=== PATIENT | male | born 1990 | race Caucasian/White ===

== ENCOUNTER 2022-10-07 14:37 | Outpatient (OUT) | payer OTHER, SELFPAY ==
--- NOTE | 2022-10-07 14:44 | XR_ITS ---
The [address] [address] Patient Name: CHRISTY FLORES MRN: [id number] date: 1990 Sex: M Assigned Patient Location: US Current Patient Location: US Accession/Order Number: [id number] Exam Date: 10/07/2022 15:40 Report Date: 10/08/2022 05:23 At the request of: OLU COTTON Procedure: XR tibia fibula RT 2V EXAM: XR tibia fibula RT 2V 10/07/2022 3:40 PM EDT OH001 CLINICAL STATEMENT: Rule out DVT M79.604 COMPARISON: No prior studies are available at the time of dictation. TECHNIQUE: AP and lateral views of the right tibia and fibula are submitted. FINDINGS: The osseous structures are intact and in anatomic alignment. There is no acute fracture and/or dislocation. The joint spaces are preserved. Soft tissues are unremarkable. Bone mineralization is within normal limits for the patient's age. IMPRESSION: Unremarkable tibia and fibula radiograph. Electronically authenticated by: ALEX ADORNO Date: 10/08/2022 05:23
--- NOTE | 2022-10-07 14:45 | US_ITS ---
The [address] [address] Patient Name: CHRISTY FLORES MRN: [id number] date: 1990 Sex: M Assigned Patient Location: US Current Patient Location: US Accession/Order Number: [id number] Exam Date: 10/07/2022 15:10 Report Date: 10/08/2022 07:00 At the request of: OLU COTTON Procedure: US venous doppler LE RT EXAMINATION: US venous doppler LE RT HISTORY: Rule out DVT M79.604 ; lateral knee and calf pain COMPARISON: No relevant comparison available. FINDINGS: REGION: Right lower extremity THROMBI: None. COMPRESSIBILITY: Normal compressibility. FLOW: Normal waveform and antegrade flow between 5 and 20 cm/s. OTHER: Complex lymph node within right groin, 3.7 x 1.0 x 2.2 cm. IMPRESSION: 1. No deep vein thrombus within the right lower extremity. 2. Complex right groin lymph node; possibly reactive. Consider follow-up. Electronically authenticated by: CHELI ELLIS Date: 10/08/2022 07:00
== END 2022-10-07 14:38 ==
PROVIDERS: PCP Family Medicine; Visit Provider Family Medicine
DX: M79.604 Pain in right leg (principal)
CPT/HCPCS: 73590; 93971

== ENCOUNTER 2022-10-11 11:58 | Outpatient (OUT) | payer OTHER, SELFPAY ==
[2022-10-11 12:26] LABS: Basophils Percent Auto 0.5 % (0.2-2.0); Eosinophils Absolute Auto 0.1 10^3/uL (0.0-0.7); Eosinophils Percent Auto 2.3 % (0.9-7.0); Hematocrit 41.3 % (42.0-54.0); Immature Granulocytes Abs Auto 0.02 10^3/uL (0.00-0.03); Immature Granulocytes Pct Auto 0.5 % (0.0-0.5); Lymphocytes Absolute Auto 0.8 10^3/uL (1.2-3.8); Lymphocytes Percent Auto 17.3 % (20.5-60.0); Mean Corpuscular HGB Conc 33.9 g/dL (29.9-35.2); Mean Corpuscular Hemoglobin 28.2 pg (25.9-34.0); Mean Corpuscular Volume 83.1 fL (80.0-94.0); Mean Platelet Volume 8.5 fL (9.5-13.5); Monocytes Absolute Auto 0.9 10^3/uL (0.3-0.8); Neutrophils Absolute Auto 2.6 10^3/uL (1.4-6.5); Neutrophils Percent Auto 59.4 % (43.0-75.0); Platelet Count 347 10^3/uL (150-450); Red Blood Count 4.97 10^6/uL (4.70-6.10); Red Cell Distribution Width 13.7 % (11.0-15.0); White Blood Count 4.4 10^3/uL (4.0-11.0)
[2022-10-11 12:32] LABS: Erythrocyte Sedimentation Rate 80 mm/hr (<=15)
[2022-10-11 12:48] LABS: Anion Gap 12.7; BUN Creatinine Ratio 7.4; Calcium 9.1 mg/dL (8.5-10.1); Carbon Dioxide 27.2 mmol/L (21.0-32.0); Chloride 97 mmol/L (98-107); Estimated GFR (African America >60 (>=60); Estimated GFR (Non-African Ame >60 (>=60); Glucose 104 mg/dL (74-106); Potassium 3.9 mmol/L (3.5-5.1); Sodium 133 mmol/L (136-145)
== END 2022-10-11 11:59 ==
LOC: LAB 11:59
PROVIDERS: PCP Family Medicine; Visit Provider Family Medicine
DX: L03.115 Cellulitis of right lower limb (principal)
CPT/HCPCS: 36415; 80048; 85025; 85652; 87040